=== PATIENT | male | born 1950 | race Caucasian/White ===

== ENCOUNTER 2018-04-02 10:56 | Emergency (ER) | payer MEDICARE, BC ==
--- NOTE | 2018-04-02 10:52 | EDM.PDOC ---
ED HPI GENERAL MEDICAL PROBLEM - General Chief Complaint: Fever Stated Complaint: FEVER Time Seen by Provider: 04/02/18 10:40 Source of Information: Reports: Patient, EMS, Family - History of Present Illness INITIAL COMMENTS - FREE TEXT/NARRATIVE: Patient fell in the shower at 0700, heard thump. No witness LOC or seizure activity. No complaints of pain. History of alcohol abuse, patient has been attempting to cut down. Denies focal weakness. History of CVA, on Plavix. Td UTD. Onset: Today Onset Date: 04/02/18 Onset Time: 07:00 Location: Reports: Other (left foot abrasion) Quality: Reports: Other (denies pain) Severity: Mild - Related Data Allergies Allergy/AdvReac Type Severity Reaction Status Date / Time No Known Allergies Allergy Verified 04/02/18 10:56 Home Meds: Home Meds Clopidogrel Bisulfate [Clopidogrel] 75 mg PO DAILY 04/02/18 [History] Pilocarpine [Salagen] 5 mg PO DAILY 04/02/18 [History] Simvastatin [Zocor] 40 mg PO DAILY 04/02/18 [History] Past Medical History Cardiovascular History: Denies: CAD Neurological History: Reports: CVA Psychiatric History: Reports: Other (See Below) (Alcohol abuse) Oncologic (Cancer) History: Reports: Other (See Below) (Throat CA (in remission ) s/p radiation treatment) Social & Family History - Tobacco Use Smoking Status *Q: Current Every Day Smoker Tobacco Use Within Last Twelve Months: Cigarettes - Alcohol Use Alcohol Use History: Yes Days Per Week of Alcohol Use: 7 (1/2 liter hard alcohol per day) Alcohol Use in Last Twelve Months: Yes Alcohol Use Frequency: Daily - Recreational Drug Use Recreational Drug Use: No ED ROS GENERAL - Review of Systems Review Of Systems: See Below Constitutional: Reports: Weakness (generalized), Other (poor appetite) HEENT: Reports: No Symptoms Respiratory: Reports: Cough Cardiovascular: Reports: No Symptoms Endocrine: Reports: No Symptoms GI/Abdominal: Reports: No Symptoms : Reports: No Symptoms Musculoskeletal: Reports: No Symptoms Skin: Reports: Other (left foot skin tear) Neurological: Reports: Other (tremulous). Denies: Dizziness, Headache, Seizure Psychiatric: Reports: No Symptoms Hematologic/Lymphatic: Reports: No Symptoms Immunologic: Reports: No Symptoms ED EXAM, GENERAL - Physical Exam Exam: See Below Exam Limited By: No Limitations General Appearance: Alert, WD/WN, No Apparent Distress, Anxious, Other (very tremulous) Eye Exam: Bilateral Eye: EOMI, PERRL Ears: Normal External Exam Ear Exam: Bilateral Ear: Auricle Normal Nose: Normal Inspection, No Blood Throat/Mouth: Normal Inspection, Normal Oropharynx, Normal Voice, No Airway Compromise Head: Atraumatic, Normocephalic Neck: Normal Inspection, Supple Respiratory/Chest: No Respiratory Distress, Lungs Clear, Normal Breath Sounds, No Accessory Muscle Use, Chest Non-Tender Cardiovascular: Normal Peripheral Pulses, No Edema, No Murmur, Tachycardia Peripheral Pulses: 2+: Dorsalis Pedis (L), Dorsalis Pedis (R) GI/Abdominal: Normal Bowel Sounds, Soft, Non-Tender, No Distention, Pelvis Stable (Male) Exam: No Hernia Rectal (Males) Exam: Other (melanotic stool) Back Exam: Normal Inspection, Full Range of Motion Extremities: Normal Range of Motion, Non-Tender, Normal Capillary Refill, Other (left foot abrsion) Neurological: Alert, Oriented, CN II-XII Intact, No Motor/Sensory Deficits Psychiatric: Anxious Skin Exam: Other (left foot skin tear) EKG INTERPRETATION EKG Date: 04/02/18 Time: 11:59 Rhythm: Other (sinus tachycardia) Rate (Beats/Min): 104 Comparison: NA - No Prior EKG EKG Interpretation Comments: RBBB, LAFB, Q waves inferior leads, no ST abnormality Course - Vital Signs Last Recorded V/S: Last Vital Signs Temp 38.2 C H 04/02/18 12:34 Pulse 116 H 04/02/18 14:02 Resp 29 H 04/02/18 13:30 BP 135/67 04/02/18 13:30 Pulse Ox 95 04/02/18 14:02 - Orders/Labs/Meds Orders: Active Orders 24 hr Category Date Time Status Cardiac Monitoring [RC] CONTINUOUS Care 04/02/18 10:43 Active Urinary Catheter Assessment [RC] QSHIFT Care 04/02/18 10:41 Active Urinary Catheter Insertion [Insert Urinary Catheter] [ Care 04/02/18 10:45 Ordered OM.PC] Q24H Chest Abdomen Pelvis wo Cont [CT] Stat Exams 04/02/18 10:27 Taken CULTURE BLOOD [BC] Stat Lab 04/02/18 10:40 Received CULTURE BLOOD [BC] Urgent Lab 04/02/18 10:35 Received DRUG SCREEN, URINE ALERE [URCHEM] Stat Lab 04/02/18 11:24 Ordered OCCULT BLOOD DIAGNOSTIC [OP] Stat Lab 04/02/18 11:20 Ordered UA W/MICROSCOPIC [URIN] Stat Lab 04/02/18 11:24 Ordered MVI, Adult with Vitamin K [Infuvite Adult] 10 ml Med 04/02/18 10:30 Active Thiamine [Vitamin B-1] 100 mg Folic Acid 1 mg Magnesium Sulfate [Magnesium Sulfate 50%] 3 gm Sodium Chloride 0.9% [Normal Saline] 1,000 ml IV ASDIRECTED Pantoprazole [ProTONIX IV] 80 mg Med 04/02/18 10:45 Active Sodium Chloride 0.9% [Normal Saline] 100 ml IV .Continuous Sodium Chloride 0.9% [Normal Saline] 250 ml Med 04/02/18 13:00 Active IV ASDIRECTED Sodium Chloride 0.9% [Saline Flush] Med 04/02/18 10:39 Active 10 ml FLUSH ASDIRECTED PRN Saline Lock Insert [OM.PC] Stat Oth 04/02/18 10:39 Ordered Saline Lock Insert [OM.PC] Stat Oth 04/02/18 10:39 Ordered EKG 12 Lead [EK] Stat Ther 04/02/18 10:24 Ordered EKG 12 Lead [EK] Stat Ther 04/02/18 11:55 Ordered Medication Orders Multivitamins/Minerals 10 ml/Thiamine HCl 100 mg/ Folic Acid 1 mg/ Magnesium Sulfate 3 gm/ Sodium Chloride 1,017.2 mls @ 250 mls/hr IV ASDIRECTED ALDEN Last Admin: 04/02/18 11:41 Dose: 250 mls/hr Pantoprazole Sodium 80 mg/ (Sodium Chloride) 100 mls @ 8 mls/hr IV .Continuous ALDEN Last Admin: 04/02/18 11:51 Dose: 8 mls/hr Sodium Chloride (Normal Saline) 250 mls @ 30 mls/hr IV ASDIRECTED ALDEN Last Admin: 04/02/18 13:01 Dose: 30 mls/hr Sodium Chloride (Saline Flush) 10 ml FLUSH ASDIRECTED PRN PRN Reason: Keep Vein Open Last Admin: 04/02/18 12:25 Dose: 10 ml Admin: 04/02/18 12:00 Dose: 10 ml Labs: Laboratory Tests 04/02/18 04/02/18 04/02/18 Range/Units 10:35 10:35 10:35 WBC 6.8 (4.5-12.0) X10-3/uL RBC 3.59 L (4.30-5.75) x10(6)uL Hgb 11.9 (11.5-15.5) g/dL Hct 34.9 (30.0-51.3) % MCV 97.0 H (80-96) fL MCH 33.2 (27.7-33.6) pg MCHC 34.2 (32.2-35.4) g/dL RDW 12.9 (11.5-15.5) % Plt Count 72 L (125-369) X10(3)uL MPV 9.5 (7.4-10.4) fL Neut % (Auto) 84.8 H (46-82) % Lymph % (Auto) 4.2 L (13-37) % [place] % (Auto) 10.7 (4-12) % Eos % (Auto) 0 L (1.0-5.0) % Baso % (Auto) 0 (0-2) % Neut # (Auto) 5.8 (1.6-8.3) # Lymph # (Auto) 0.3 L (0.6-5.0) # [place] # (Auto) 0.7 (0.0-1.3) # Eos # (Auto) 0.0 (0.0-0.8) # Baso # (Auto) 0.0 (0.0-0.2) # PT 10.3 (8.7-11.1) INR 1.06 (0.89-1.13) ABG pH (7.35-7.45) ABG pCO2 (35-45) mmHg ABG pO2 (83-108) mmHg ABG HCO3 (22-26) mmol/L ABG O2 Saturation (96-97) % ABG Base Excess (-2-2) Alok Test O2 Delivery Device Sodium 126 L (135-145) mmol/L Potassium 4.1 (3.5-5.3) mmol/L Chloride 89 L* (100-110) mmol/L Carbon Dioxide 21 (21-32) mmol/L BUN 22 H (7-18) mg/dL Creatinine 1.7 H (0.70-1.30) mg/dL Est Cr Clr Drug Dosing TNP Estimated GFR (MDRD) 40 L (>60) BUN/Creatinine Ratio 12.9 (9-20) Glucose 95 (80-116) mg/dL Lactic Acid (0.4-2.2) mmol/L Calcium 8.7 (8.6-10.2) mg/dL Magnesium (1.8-2.5) mg/dL Total Bilirubin 0.7 (0.1-1.3) mg/dL AST 120 H (5-25) IU/L ALT 82 H (12-36) U/L Alkaline Phosphatase 88 (56-112) IU/L Troponin I (<0.017-0.056) ng/mL Total Protein 7.1 (6.0-8.0) g/dL Albumin 3.3 (3.2-4.6) g/dL Globulin 3.8 g/dL Albumin/Globulin Ratio 0.9 Urine Color (YELLOW) Urine Appearance (CLEAR) Urine pH (5.0-6.5) Ur Specific [place] (1.010-1.025) Urine Protein (NEGATIVE) mg/dL Urine Glucose (UA) (NEGATIVE) mg/dL Urine Ketones (NEGATIVE) mg/dL Urine Occult Blood (NEGATIVE) Urine Nitrite (NEGATIVE) Urine Bilirubin (NEGATIVE) Urine Urobilinogen (NEGATIVE) mg/dL Ur Leukocyte Esterase (NEGATIVE) Urine RBC (0) Urine WBC (0) Ur Squamous Epith Cells (NS,R,O) Ur Renal Epithelial Cell (NS) Amorphous Sediment Urine Bacteria (NS) Urine Sperm (NS) Urine Opiates Screen (NEGATIVE) Ur Oxycodone Screen (NEGATIVE) Ur Propoxyphene Screen (NEGATIVE) Ur Barbituates Screen (NEGATIVE) Ur Tricyclics Screen (NEGATIVE) Ur Phencyclidine Scrn (NEGATIVE) Ur Amphetamine Screen (NEGATIVE) Urine MDMA Screen (NEGATIVE) U Benzodiazepines Scrn (NEGATIVE) U Cocaine Metab Screen (NEGATIVE) U Marijuana (THC) Screen (NEGATIVE) Ethyl Alcohol (<0.03) % Blood Type Gel Antibody Screen 04/02/18 04/02/18 04/02/18 Range/Units 10:35 10:35 10:35 WBC (4.5-12.0) X10-3/uL RBC (4.30-5.75) x10(6)uL Hgb (11.5-15.5) g/dL Hct (30.0-51.3) % MCV (80-96) fL MCH (27.7-33.6) pg MCHC (32.2-35.4) g/dL RDW (11.5-15.5) % Plt Count (125-369) X10(3)uL MPV (7.4-10.4) fL Neut % (Auto) (46-82) % Lymph % (Auto) (13-37) % [place] % (Auto) (4-12) % Eos % (Auto) (1.0-5.0) % Baso % (Auto) (0-2) % Neut # (Auto) (1.6-8.3) # Lymph # (Auto) (0.6-5.0) # [place] # (Auto) (0.0-1.3) # Eos # (Auto) (0.0-0.8) # Baso # (Auto) (0.0-0.2) # PT (8.7-11.1) INR (0.89-1.13) ABG pH (7.35-7.45) ABG pCO2 (35-45) mmHg ABG pO2 (83-108) mmHg ABG HCO3 (22-26) mmol/L ABG O2 Saturation (96-97) % ABG Base Excess (-2-2) Alok Test O2 Delivery Device Sodium (135-145) mmol/L Potassium (3.5-5.3) mmol/L Chloride (100-110) mmol/L Carbon Dioxide (21-32) mmol/L BUN (7-18) mg/dL Creatinine (0.70-1.30) mg/dL Est Cr Clr Drug Dosing Estimated GFR (MDRD) (>60) BUN/Creatinine Ratio (9-20) Glucose (80-116) mg/dL Lactic Acid 4.3 H (0.4-2.2) mmol/L Calcium (8.6-10.2) mg/dL Magnesium 1.1 L* (1.8-2.5) mg/dL Total Bilirubin (0.1-1.3) mg/dL AST (5-25) IU/L ALT (12-36) U/L Alkaline Phosphatase (56-112) IU/L Troponin I 0.747 H* (<0.017-0.056) ng/mL Total Protein (6.0-8.0) g/dL Albumin (3.2-4.6) g/dL Globulin g/dL Albumin/Globulin Ratio Urine Color (YELLOW) Urine Appearance (CLEAR) Urine pH (5.0-6.5) Ur Specific [place] (1.010-1.025) Urine Protein (NEGATIVE) mg/dL Urine Glucose (UA) (NEGATIVE) mg/dL Urine Ketones (NEGATIVE) mg/dL Urine Occult Blood (NEGATIVE) Urine Nitrite (NEGATIVE) Urine Bilirubin (NEGATIVE) Urine Urobilinogen (NEGATIVE) mg/dL Ur Leukocyte Esterase (NEGATIVE) Urine RBC (0) Urine WBC (0) Ur Squamous Epith Cells (NS,R,O) Ur Renal Epithelial Cell (NS) Amorphous Sediment Urine Bacteria (NS) Urine Sperm (NS) Urine Opiates Screen (NEGATIVE) Ur Oxycodone Screen (NEGATIVE) Ur Propoxyphene Screen (NEGATIVE) Ur Barbituates Screen (NEGATIVE) Ur Tricyclics Screen (NEGATIVE) Ur Phencyclidine Scrn (NEGATIVE) Ur Amphetamine Screen (NEGATIVE) Urine MDMA Screen (NEGATIVE) U Benzodiazepines Scrn (NEGATIVE) U Cocaine Metab Screen (NEGATIVE) U Marijuana (THC) Screen (NEGATIVE) Ethyl Alcohol (<0.03) % Blood Type Gel Antibody Screen 04/02/18 04/02/18 04/02/18 Range/Units 10:35 10:35 11:24 WBC (4.5-12.0) X10-3/uL RBC (4.30-5.75) x10(6)uL Hgb (11.5-15.5) g/dL Hct (30.0-51.3) % MCV (80-96) fL MCH (27.7-33.6) pg MCHC (32.2-35.4) g/dL RDW (11.5-15.5) % Plt Count (125-369) X10(3)uL MPV (7.4-10.4) fL Neut % (Auto) (46-82) % Lymph % (Auto) (13-37) % [place] % (Auto) (4-12) % Eos % (Auto) (1.0-5.0) % Baso % (Auto) (0-2) % Neut # (Auto) (1.6-8.3) # Lymph # (Auto) (0.6-5.0) # [place] # (Auto) (0.0-1.3) # Eos # (Auto) (0.0-0.8) # Baso # (Auto) (0.0-0.2) # PT (8.7-11.1) INR (0.89-1.13) ABG pH (7.35-7.45) ABG pCO2 (35-45) mmHg ABG pO2 (83-108) mmHg ABG HCO3 (22-26) mmol/L ABG O2 Saturation (96-97) % ABG Base Excess (-2-2) Alok Test O2 Delivery Device Sodium (135-145) mmol/L Potassium (3.5-5.3) mmol/L Chloride (100-110) mmol/L Carbon Dioxide (21-32) mmol/L BUN (7-18) mg/dL Creatinine (0.70-1.30) mg/dL Est Cr Clr Drug Dosing Estimated GFR (MDRD) (>60) BUN/Creatinine Ratio (9-20) Glucose (80-116) mg/dL Lactic Acid (0.4-2.2) mmol/L Calcium (8.6-10.2) mg/dL Magnesium (1.8-2.5) mg/dL Total Bilirubin (0.1-1.3) mg/dL AST (5-25) IU/L ALT (12-36) U/L Alkaline Phosphatase (56-112) IU/L Troponin I (<0.017-0.056) ng/mL Total Protein (6.0-8.0) g/dL Albumin (3.2-4.6) g/dL Globulin g/dL Albumin/Globulin Ratio Urine Color Yellow (YELLOW) Urine Appearance Clear (CLEAR) Urine pH 5.0 (5.0-6.5) Ur Specific [place] 1.020 (1.010-1.025) Urine Protein 500 H (NEGATIVE) mg/dL Urine Glucose (UA) Normal (NEGATIVE) mg/dL Urine Ketones Negative (NEGATIVE) mg/dL Urine Occult Blood Moderate H (NEGATIVE) Urine Nitrite Negative (NEGATIVE) Urine Bilirubin Negative (NEGATIVE) Urine Urobilinogen Normal (NEGATIVE) mg/dL Ur Leukocyte Esterase Negative (NEGATIVE) Urine RBC 0-5 (0) Urine WBC 0-5 (0) Ur Squamous Epith Cells Rare (NS,R,O) Ur Renal Epithelial Cell Rare H (NS) Amorphous Sediment Moderate Urine Bacteria Rare H (NS) Urine Sperm Occasional H (NS) Urine Opiates Screen (NEGATIVE) Ur Oxycodone Screen (NEGATIVE) Ur Propoxyphene Screen (NEGATIVE) Ur Barbituates Screen (NEGATIVE) Ur Tricyclics Screen (NEGATIVE) Ur Phencyclidine Scrn (NEGATIVE) Ur Amphetamine Screen (NEGATIVE) Urine MDMA Screen (NEGATIVE) U Benzodiazepines Scrn (NEGATIVE) U Cocaine Metab Screen (NEGATIVE) U Marijuana (THC) Screen (NEGATIVE) Ethyl Alcohol < 0.03 (<0.03) % Blood Type A POSITIVE Gel Antibody Screen Negative 04/02/18 04/02/18 04/02/18 Range/Units 11:24 12:57 12:57 WBC (4.5-12.0) X10-3/uL RBC (4.30-5.75) x10(6)uL Hgb (11.5-15.5) g/dL Hct (30.0-51.3) % MCV (80-96) fL MCH (27.7-33.6) pg MCHC (32.2-35.4) g/dL RDW (11.5-15.5) % Plt Count (125-369) X10(3)uL MPV (7.4-10.4) fL Neut % (Auto) (46-82) % Lymph % (Auto) (13-37) % [place] % (Auto) (4-12) % Eos % (Auto) (1.0-5.0) % Baso % (Auto) (0-2) % Neut # (Auto) (1.6-8.3) # Lymph # (Auto) (0.6-5.0) # [place] # (Auto) (0.0-1.3) # Eos # (Auto) (0.0-0.8) # Baso # (Auto) (0.0-0.2) # PT (8.7-11.1) INR (0.89-1.13) ABG pH (7.35-7.45) ABG pCO2 (35-45) mmHg ABG pO2 (83-108) mmHg ABG HCO3 (22-26) mmol/L ABG O2 Saturation (96-97) % ABG Base Excess (-2-2) Alok Test O2 Delivery Device Sodium (135-145) mmol/L Potassium (3.5-5.3) mmol/L Chloride (100-110) mmol/L Carbon Dioxide (21-32) mmol/L BUN (7-18) mg/dL Creatinine (0.70-1.30) mg/dL Est Cr Clr Drug Dosing Estimated GFR (MDRD) (>60) BUN/Creatinine Ratio (9-20) Glucose (80-116) mg/dL Lactic Acid 2.4 H (0.4-2.2) mmol/L Calcium (8.6-10.2) mg/dL Magnesium (1.8-2.5) mg/dL Total Bilirubin (0.1-1.3) mg/dL AST (5-25) IU/L ALT (12-36) U/L Alkaline Phosphatase (56-112) IU/L Troponin I 0.857 H* (<0.017-0.056) ng/mL Total Protein (6.0-8.0) g/dL Albumin (3.2-4.6) g/dL Globulin g/dL Albumin/Globulin Ratio Urine Color (YELLOW) Urine Appearance (CLEAR) Urine pH (5.0-6.5) Ur Specific [place] (1.010-1.025) Urine Protein (NEGATIVE) mg/dL Urine Glucose (UA) (NEGATIVE) mg/dL Urine Ketones (NEGATIVE) mg/dL Urine Occult Blood (NEGATIVE) Urine Nitrite (NEGATIVE) Urine Bilirubin (NEGATIVE) Urine Urobilinogen (NEGATIVE) mg/dL Ur Leukocyte Esterase (NEGATIVE) Urine RBC (0) Urine WBC (0) Ur Squamous Epith Cells (NS,R,O) Ur Renal Epithelial Cell (NS) Amorphous Sediment Urine Bacteria (NS) Urine Sperm (NS) Urine Opiates Screen Negative (NEGATIVE) Ur Oxycodone Screen Negative (NEGATIVE) Ur Propoxyphene Screen Negative (NEGATIVE) Ur Barbituates Screen Negative (NEGATIVE) Ur Tricyclics Screen Negative (NEGATIVE) Ur Phencyclidine Scrn Negative (NEGATIVE) Ur Amphetamine Screen Negative (NEGATIVE) Urine MDMA Screen Negative (NEGATIVE) U Benzodiazepines Scrn Negative (NEGATIVE) U Cocaine Metab Screen Negative (NEGATIVE) U Marijuana (THC) Screen Negative (NEGATIVE) Ethyl Alcohol (<0.03) % Blood Type Gel Antibody Screen 04/02/18 Range/Units 13:39 WBC (4.5-12.0) X10-3/uL RBC (4.30-5.75) x10(6)uL Hgb (11.5-15.5) g/dL Hct (30.0-51.3) % MCV (80-96) fL MCH (27.7-33.6) pg MCHC (32.2-35.4) g/dL RDW (11.5-15.5) % Plt Count (125-369) X10(3)uL MPV (7.4-10.4) fL Neut % (Auto) (46-82) % Lymph % (Auto) (13-37) % [place] % (Auto) (4-12) % Eos % (Auto) (1.0-5.0) % Baso % (Auto) (0-2) % Neut # (Auto) (1.6-8.3) # Lymph # (Auto) (0.6-5.0) # [place] # (Auto) (0.0-1.3) # Eos # (Auto) (0.0-0.8) # Baso # (Auto) (0.0-0.2) # PT (8.7-11.1) INR (0.89-1.13) ABG pH 7.37 (7.35-7.45) ABG pCO2 32 L (35-45) mmHg ABG pO2 50 L (83-108) mmHg ABG HCO3 18 L (22-26) mmol/L ABG O2 Saturation 85 L (96-97) % ABG Base Excess -5.7 L (-2-2) Alok Test N/a O2 Delivery Device Nasal cannula Sodium (135-145) mmol/L Potassium (3.5-5.3) mmol/L Chloride (100-110) mmol/L Carbon Dioxide (21-32) mmol/L BUN (7-18) mg/dL Creatinine (0.70-1.30) mg/dL Est Cr Clr Drug Dosing Estimated GFR (MDRD) (>60) BUN/Creatinine Ratio (9-20) Glucose (80-116) mg/dL Lactic Acid (0.4-2.2) mmol/L Calcium (8.6-10.2) mg/dL Magnesium (1.8-2.5) mg/dL Total Bilirubin (0.1-1.3) mg/dL AST (5-25) IU/L ALT (12-36) U/L Alkaline Phosphatase (56-112) IU/L Troponin I (<0.017-0.056) ng/mL Total Protein (6.0-8.0) g/dL Albumin (3.2-4.6) g/dL Globulin g/dL Albumin/Globulin Ratio Urine Color (YELLOW) Urine Appearance (CLEAR) Urine pH (5.0-6.5) Ur Specific [place] (1.010-1.025) Urine Protein (NEGATIVE) mg/dL Urine Glucose (UA) (NEGATIVE) mg/dL Urine Ketones (NEGATIVE) mg/dL Urine Occult Blood (NEGATIVE) Urine Nitrite (NEGATIVE) Urine Bilirubin (NEGATIVE) Urine Urobilinogen (NEGATIVE) mg/dL Ur Leukocyte Esterase (NEGATIVE) Urine RBC (0) Urine WBC (0) Ur Squamous Epith Cells (NS,R,O) Ur Renal Epithelial Cell (NS) Amorphous Sediment Urine Bacteria (NS) Urine Sperm (NS) Urine Opiates Screen (NEGATIVE) Ur Oxycodone Screen (NEGATIVE) Ur Propoxyphene Screen (NEGATIVE) Ur Barbituates Screen (NEGATIVE) Ur Tricyclics Screen (NEGATIVE) Ur Phencyclidine Scrn (NEGATIVE) Ur Amphetamine Screen (NEGATIVE) Urine MDMA Screen (NEGATIVE) U Benzodiazepines Scrn (NEGATIVE) U Cocaine Metab Screen (NEGATIVE) U Marijuana (THC) Screen (NEGATIVE) Ethyl Alcohol (<0.03) % Blood Type Gel Antibody Screen Stool hemoccult: POSITIVE Meds: Medications Generic Name Dose Route Start Last Admin Trade Name Freq PRN Reason Stop Dose Admin Multivitamins/Minerals 10 ml/ 1,017.2 mls @ 250 mls/hr 04/02/18 10:30 11:41 Thiamine HCl 100 mg/ Folic IV 250 mls/hr Acid 1 mg/ Magnesium Sulfate 3 ASDIRECTED ALDEN Administration gm/ Sodium Chloride Pantoprazole Sodium 80 mg/ 100 mls @ 8 mls/hr 04/02/18 10:45 07/16/18 11:51 Sodium Chloride IV 8 mls/hr .Continuous ALDEN Administration Sodium Chloride 250 mls @ 30 mls/hr 04/02/18 13:00 04/02/18 13:01 Normal Saline IV 30 mls/hr ASDIRECTED ALDEN Administration Sodium Chloride 10 ml 04/02/18 10:39 04/02/18 12:25 Saline Flush FLUSH 10 ml ASDIRECTED PRN Administration Keep Vein Open Discontinued Medications Generic Name Dose Route Start Last Admin Trade Name Erik PRN Reason Stop Dose Admin Acetaminophen 650 mg 04/02/18 11:25 04/02/18 11:50 Tylenol RECTAL 04/02/18 11:26 650 mg NOW ONE Administration Albuterol/Ipratropium 3 ml 04/02/18 13:13 04/02/18 13:24 Duoneb 3.0-0.5 Mg/3 Ml NEB 04/02/18 13:14 3 ml ONETIME ONE Administration Ceftriaxone Sodium 2 gm 04/02/18 11:15 04/02/18 11:46 Rocephin IV 04/02/18 11:16 2 gm ONETIME ONE Administration Dexamethasone 10 mg 04/02/18 13:31 04/02/18 13:39 Dexamethasone IVPUSH 04/02/18 13:32 10 mg ONETIME ONE Administration Sodium Chloride 1,000 mls @ 999 mls/hr 04/02/18 10:29 04/02/18 10:50 Normal Saline IV 04/02/18 11:29 999 mls/hr .BOLUS ONE Administration Ceftriaxone Sodium 2,000 mg/ 50 mls @ 100 mls/hr 04/02/18 10:45 Sodium Chloride IV 04/02/18 11:14 ONETIME ONE Vancomycin HCl 1,000 mg/ 250 mls @ 167 mls/hr 04/02/18 11:01 04/02/18 11:54 Sodium Chloride IV 04/02/18 12:12 167 mls/hr ONETIME ONE Administration Sodium Chloride 1,000 mls @ 999 mls/hr 04/02/18 11:10 04/02/18 11:52 Normal Saline IV 04/02/18 12:10 999 mls/hr .BOLUS ONE Administration Iopamidol 100 ml 04/02/18 10:38 04/02/18 11:40 Isovue-370 (76%) IV 04/02/18 10:39 Not Given . DIRECTED ONE Lorazepam 1 mg 04/02/18 10:28 04/02/18 11:05 Ativan IVPUSH 04/02/18 10:29 1 mg ONETIME ONE Administration Lorazepam 1 mg 04/02/18 12:12 04/02/18 12:21 Ativan IVPUSH 04/02/18 12:13 1 mg ONETIME ONE Administration Metoprolol Tartrate 5 mg 04/02/18 11:45 04/02/18 11:42 Lopressor IVPUSH 04/02/18 11:46 5 mg ONETIME ONE Administration Pantoprazole Sodium 80 mg 04/02/18 10:31 04/02/18 11:49 Protonix Iv IVPUSH 04/02/18 10:32 80 mg .BOLUS ONE Administration - Radiology Interpretation Free Text/Narrative:: CT Head: No acute abnormality. Area of encephalomalacia left cerebellum, likely due to prior CVA CT C-spine: No acute abnormality. CT Chest/Abd/Pelvis w/o contrast: Multifocal infiltrates. No acute traumatic injury. No ascites. CT Results Date: 04/02/18 - Re-Assessments/Exams Free Text/Narrative Re-Assessment/Exam: 04/02/18 13:33 Patient developed expiratory wheezes bilaterally and increased RR (30's), Duoneb and Decadron 10mg IV ordered. Free Text/Narrative Re-Assessment/Exam: 04/02/18 14:00 Patient tremulousness has resolved. Somnolent but arousable. Wheezes have improved after Duoneb. Elevated Troponin not treated with antiocoagulation due to GI bleed. Elevated Troponin may be secondary to Rhabdomyolysis. [facility] lab does not perform CK or Myoglobin assays. Free Text/Narrative Re-Assessment/Exam: 04/02/18 14:18 Dr. Rendon accepts patient for transfer to [facility] Departure - Departure Time of Disposition: 14:17 Disposition: DC/Tfer to Acute Hospital 02 Condition: Serious Clinical Impression: Multifocal pneumonia, Rhabdomyolysis, Elevated troponin, Alcohol withdrawal, Hyponatremia, Renal insufficiency, Hypomagnesemia, Lactic acidosis GI bleed Qualifiers: GI bleed type/associated pathology: melena Qualified Code(s): K92.1 - Melena - Discharge Information *PRESCRIPTION DRUG MONITORING PROGRAM REVIEWED*: No *COPY OF PRESCRIPTION DRUG MONITORING REPORT IN PATIENT ZAHEER: Not Applicable Referrals: Kartik Schreiber MD [Primary Care Provider] - Forms: ED Department Discharge, Interfacility Transfer EMTALA - My Orders Last 24 Hours: My Active Orders 04/02/18 10:24 EKG 12 Lead [EK] Stat 04/02/18 10:27 Chest Abdomen Pelvis wo Cont [CT] Stat 04/02/18 10:30 MVI, Adult with Vitamin K [Infuvite Adult] 10 ml Thiamine [Vitamin B-1] 100 mg Folic Acid 1 mg Magnesium Sulfate [Magnesium Sulfate 50%] 3 gm Sodium Chloride 0.9% [Normal Saline] 1,000 ml IV ASDIRECTED 04/02/18 10:35 CULTURE BLOOD [BC] Urgent 04/02/18 10:39 Sodium Chloride 0.9% [Saline Flush] 10 ml FLUSH ASDIRECTED PRN Saline Lock Insert [OM.PC] Stat Saline Lock Insert [OM.PC] Stat 04/02/18 10:40 CULTURE BLOOD [BC] Stat 04/02/18 10:41 Urinary Catheter Assessment [RC] QSHIFT 04/02/18 10:43 Cardiac Monitoring [RC] CONTINUOUS 04/02/18 10:45 Urinary Catheter Insertion [Insert Urinary Catheter] [OM.PC] Q24H Pantoprazole [ProTONIX IV] 80 mg Sodium Chloride 0.9% [Normal Saline] 100 ml IV .Continuous 04/02/18 11:20 OCCULT BLOOD DIAGNOSTIC [OP] Stat 04/02/18 11:24 DRUG SCREEN, URINE ALERE [URCHEM] Stat UA W/MICROSCOPIC [URIN] Stat 04/02/18 11:55 EKG 12 Lead [EK] Stat 04/02/18 13:00 Sodium Chloride 0.9% [Normal Saline] 250 ml IV ASDIRECTED - Assessment/Plan Last 24 Hours: My Active Orders 04/02/18 10:24 EKG 12 Lead [EK] Stat 04/02/18 10:27 Chest Abdomen Pelvis wo Cont [CT] Stat 04/02/18 10:30 MVI, Adult with Vitamin K [Infuvite Adult] 10 ml Thiamine [Vitamin B-1] 100 mg Folic Acid 1 mg Magnesium Sulfate [Magnesium Sulfate 50%] 3 gm Sodium Chloride 0.9% [Normal Saline] 1,000 ml IV ASDIRECTED 04/02/18 10:35 CULTURE BLOOD [BC] Urgent 04/02/18 10:39 Sodium Chloride 0.9% [Saline Flush] 10 ml FLUSH ASDIRECTED PRN Saline Lock Insert [OM.PC] Stat Saline Lock Insert [OM.PC] Stat 04/02/18 10:40 CULTURE BLOOD [BC] Stat 04/02/18 10:41 Urinary Catheter Assessment [RC] QSHIFT 04/02/18 10:43 Cardiac Monitoring [RC] CONTINUOUS 04/02/18 10:45 Urinary Catheter Insertion [Insert Urinary Catheter] [OM.PC] Q24H Pantoprazole [ProTONIX IV] 80 mg Sodium Chloride 0.9% [Normal Saline] 100 ml IV .Continuous 04/02/18 11:20 OCCULT BLOOD DIAGNOSTIC [OP] Stat 04/02/18 11:24 DRUG SCREEN, URINE ALERE [URCHEM] Stat UA W/MICROSCOPIC [URIN] Stat 04/02/18 11:55 EKG 12 Lead [EK] Stat 04/02/18 13:00 Sodium Chloride 0.9% [Normal Saline] 250 ml IV ASDIRECTED
[~2018-04-02 10:56] MED LIST: Iopamidol 755 Mg/ML 100 ML Bottle IV ONE; LORazepam 2 MG/ML SDV IVPUSH ONE; MVI, Adult with Vitamin K 10 ML, Thiamine 100 MG, Folic Acid 1 MG, Magnesium Sulfate 3 ... IV SCH; Pantoprazole 40 MG Vial IVPUSH ONE; Pantoprazole 80 MG in Sodium Chloride 0.9% 100 ML IV SCH; Sodium Chloride 0.9% 1,000 ML IV ONE
[2018-04-02] MEDS ORDERED: Sodium Chloride 0.9% 1,000 ML IV ONE (11:10)
[2018-04-02] MEDS ORDERED: cefTRIAXone 2 GM Vial IV ONE (11:15)
[2018-04-02] MEDS ORDERED: Acetaminophen 650 MG Supp RECTAL ONE (11:25)
[2018-04-02] MEDS ORDERED: Metoprolol Tartrate 5 MG in Sodium Chloride 0.9% 50 ML IV ONE (11:31)
[2018-04-02] MEDS ORDERED: Metoprolol Tartrate 5 MG/5 ML SDV IVPUSH ONE (11:45)
[2018-04-02] MEDS: Sodium Chloride 0.9% 10 ML Syringe FLUSH PRN ×2 (12:00→12:25)
[2018-04-02] MEDS ORDERED: LORazepam 2 MG/ML SDV IVPUSH ONE (12:12)
[2018-04-02] MEDS ORDERED: Sodium Chloride 0.9% 250 ML IV SCH (13:00)
[2018-04-02] MEDS ORDERED: Albuterol/Ipratropium 3.0-0.5 MG/3 ML Neb Soln NEB ONE (13:13)
[2018-04-02] MEDS ORDERED: Dexamethasone 4 MG/ML SDV IVPUSH ONE (13:31)
--- NOTE | 2018-04-02 13:52 | CT ---
INDICATION: Trauma, found lying in tub unresponsive. CT HEAD WITHOUT CONTRAST: Serial contiguous 2.5 and 5 mm sections were obtained through the brain without contrast, 04/02/2018 - no comparisons. Total exam DLP = 1,900.62 mGy-cm, as a repeat examination was necessary, apparently due to motion. Paranasal sinuses and mastoid air cells appear to be well-aerated. No cranial fracture site was identified. Calcifications are noted in the internal carotid arteries. There is some minimal patchy decreased density in the white matter, suggesting a mild degree of microvascular disease. Septum pellucidum cavum is noted, which is a normal variant. No shift of midline structures or ventricular abnormalities were seen. No definite acute intracranial abnormality was identified - no bleeding site or hematoma was seen. 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 IMPRESSION: 1. No definite acute intracranial abnormality. 2. Area of encephalomalacia suggested of moderate size in the left cerebellum, etiology indeterminate, could be on the basis of previous thrombotic CVA - correlate clinically. 3. Cerebrovascular disease with internal carotic artery calcifications and minimal white matter changes compatible with mild microvascular disease, although other cause of leukoencephalopathy cannot be excluded. MTDD
--- NOTE | 2018-04-02 14:03 | CT ---
INDICATION: Trauma. CT CERVICAL SPINE WITHOUT CONTRAST: Spiral 2.5 mm axial sections were obtained through the cervical spine with sagittal and coronal reconstructions 04/02/2018 and compared with 01/17/2017 CT neck for soft tissue. Total exam DLP = 620.72 mGy-cm. The odontoid and the atlas are intact in appearance with minimal degenerative changes at the atlantoodontoid joint. The disk space at the C3-4 level is narrowed with mild hypertrophic degenerative changes at posterior elements and uncinate joints, right greater than left. Little change in this appearance is noted, compared with 01/17/2017, with a minimal dextroconcave scoliosis of the cervical spine and additional degenerative changes and disk disease present at the lateral masses of C3-4, C4-5, much more severely on the right than left, and C5-C6, also much more severely on the right than left. Narrowed disk space is noted at C6-7 and minimally at C5-6. Hypertrophic lipping off the C5-6 vertebral bodies is noted anteriorly and laterally. Narrowing of the neural foramina at that level is present to a mild degree. Lateral mass degenerative changes are also noted at C7-T1. A definite acute fracture or dislocation was not identified. Minimal anterolisthesis is noted at the T3-4 vertebral bodies. Anterior hypertrophic changes are noted at the upper thoracic levels included on the study, mostly of mild degree but becoming more prominent at T3-4 and also T2-3. Bone density and prevertebral space appear to be normal. IMPRESSION: 1. No acute fracture or dislocation identified. 2. Degenerative changes and disk disease with minimal scoliosis and some deformity at the sites of most severe degenerative change with little change compared with 2016 examination. [facility]
--- NOTE | 2018-04-02 14:56 | CT ---
INDICATION: Trauma. CT CHEST, ABDOMEN, AND PELVIS: Spiral 2.5 mm axial sections were obtained through the chest, abdomen, and pelvis without contrast, 04/02/2018 - no comparisons. Total exam DLP = 1,168.24 mGy-cm. CT CHEST: Examination of the chest was obtained by CT as noted above and revealed areas of subpleural density, likely representing fibrosis. The possibility of minimal pneumonia cannot be excluded with an area of subpleural infiltrate in the right upper lobe laterally. Multiple other areas are noted anteriorly in the right upper lobe and also anteriorly in the left upper lobe, which may represent patchy areas of pneumonia. A similar area of patchy infiltrate, subpleural in location, is noted in the middle lobe. No infiltrates are seen in the lower lobe on the left. However, in the superior segment of the right lower lobe, there is some minimal patchy subpleural density - infiltrate, which may also represent minimal areas of patchy pneumonia. Other etiology, such as pulmonary emboli, would be a consideration but do not appear to be compatible with the patients history. Some areas of contusion could be present with this patients history. At the 8th right rib posterolaterally, there is what appears to be a healed fracture site with mild deformity. No definite acute rib fracture sites were identified. Calcifications are noted in brachiocephalic vessels and the aorta, as well as coronary arteries. The heart was not grossly enlarged. No pericardial effusion was seen. No mediastinal mass was identified. Mediastinal lymphadenopathy is mild to moderate but is nonspecific and could be related to infection. IMPRESSION: 1. Numerous areas of subpleural infiltrate noted focally around the lungs bilaterally, most prominent in the area of the right upper lobe. These areas may represent pneumonia, although contusion in any one specific area could also be present. Fibrosis is felt to be less likely. Findings should be correlated clinically in that regard. 2. ASD/ASHD. 3. Old rib fracture appears healed on the right posteriorly and laterally. CT ABDOMEN AND PELVIS: Examination of the abdomen and pelvis was obtained without IV contrast or oral contrast, as noted above. Small to moderate sized fixed hiatal hernia is noted. Calcifications are noted in the abdominal aorta, origin of the superior mesenteric artery, superior mesenteric artery, splenic artery, iliac and femoral arteries. A Daniel catheter is noted in place. Distal descending and sigmoid diverticulosis is noted without definite evidence of diverticulitis. A calcific density is noted posteriorly in the area of the wall of the urinary bladder of questionable significance. This could be related to the urinary bladder itself. What may be the appendix appeared normal in size. No evidence of free air or bowel obstruction was seen. No evidence of a definite acute obstructive uropathy is seen. The left kidney is relatively small in size and may be somewhat atretic with thinning of the cortex. Areas of cortical scarring are noted, mostly on the left. Renal fascial thickening is noted. Renal artery calcification is seen bilaterally. Internal right renal calcification is noted - renal calcinosis is present to a mild degree and appears to be nonobstructive at this time. Moderate degenerative changes are noted at the left sacroiliac joint. Moderately severe to severe degenerative changes are noted at the right sacroiliac joint. Degenerative changes and disk disease are noted at L5-S1. Hypertrophic changes are noted at the posterior elements of L4-5 and to a slightly lesser extent L5-S1. Relatively minimal degenerative changes are noted at L3-4 apophyseal joints. Minimal calcification is noted in the prostate, which does not appear grossly enlarged. IMPRESSION: 1. ASD. 2. Renal calcinosis on the right, renal atrophy on the left. 3. Renal fascial thickening, likely on the basis of previous bouts of pyelonephritis or possibly obstructive uropathy - no acute obstructive uropathy is suggested at this time. 4. Degenerative changes and disk disease, lower lumbosacral spine. 5. Descending and sigmoid diverticulosis without definite evidence of diverticulitis. 6. Calcific density at the posterior aspect of the urinary bladder near the indwelling Daniel catheter. A bladder calculus is difficult to exclude with this appearance. 7. No definite evidence of posttraumatic change is noted in the abdomen or pelvis. 8. Degenerative changes at the sacroiliac joints, right greater than left. Report was given in person to Dr. Finch at 1304 hours on 04/02/2018. [facility]
== END 2018-04-02 15:15 ==
LOC: FB.ED 10:56
DX: J18.9 Pneumonia, unspecified organism (principal); S91.312A Laceration without foreign body, left foot, initial encounter; M62.82 Rhabdomyolysis; K92.1 Melena; F10.239 Alcohol dependence with withdrawal, unspecified; E87.1 Hypo-osmolality and hyponatremia; E83.42 Hypomagnesemia; E87.2 Acidosis; N28.9 Disorder of kidney and ureter, unspecified; F17.210 Nicotine dependence, cigarettes, uncomplicated; Z79.899 Other long term (current) drug therapy; Y90.0 Blood alcohol level of less than 20 mg/100 ml; X58.XXXA Exposure to other specified factors, initial encounter
CPT/HCPCS: 36415; 36600; 51702; 70450; 71250; 72125; 74176; 80053; 80305; 81001; 82272; 82803; 83605; 83735; 84484; 85025; 85610; 86850; 86900; 86901; 87040; 93005; 94640; 96361; 96365; 96366; 96368; 96375; 96376; 99285; A9270; C9113; G0480; J0696; J1100; J2060; J3370; J3411; J3475; J7030; J7050; J7620; J3490